=== PATIENT | male | born 1940 | race Caucasian/White ===

== ENCOUNTER → 2016-11-01 | Outpatient (REF) ==
[~2016-11-01] MED LIST: 00186-0370-20 IH; ACTOS 45MG45 MG/TAB PO; AMOXICILLIN 8751 TAB PO; ASPIRIN 32325 MG/TAB PO; BYETTA 10M600 MCG/SY; BYETTA 10M600 MCG/SY SC; BYETTA 5MC300 MCG/SY SQ; COLACE 100100 MG/CAP PO; IPRATROPIUM BROM3 M1 IH; IRON325 MG PO; LASIX 20MG TABL20 MG PO; LASIX 40MG TABL40 MG PO; LEVAQUIN 5500 MG/TA1 PO; NEURONTIN300 MG/CAP PO; PLAVIX 75MG TAB75 MG PO; PRILOSEC 20MG20 MG PO; PRINIVIL10 MG PO; ROXICODONE15 MG PO; ZOCOR 40MG40 MG PO
[2016-11-01 21:14] LABS: THYROID STIMULATING HORMONE 3.12 uIU/mL (0.465-4.680)
== END ==
LOC: ZLAB.WCH 19:39
PROVIDERS: Internal Medicine
DX: Z01.89 Encounter for other specified special examinations (principal)

== ENCOUNTER → 2017-01-11 | Outpatient (REF) | LOC: ZLAB.WCH 15:08 | DX: Z01.89 Encounter for other specified special examinations (principal) ==

== ENCOUNTER 2017-01-13 07:27 | Inpatient (IN) | payer MEDICARE, BC ==
[~2017-01-13] VITALS: Ht 182.9 cm; Wt 121.7 kg
[2017-01-13] VITALS (823 sets, daily range): BP systolic 95–129; BP diastolic 59–69; PULSE 69–74; TEMP 98–99; O2SAT 67–100
[~2017-01-13 07:27] MED LIST changes: -BYETTA 5MC300 MCG/SY SQ
[2017-01-13 09:16] LABS: ARTERIAL BLD GAS O2 SATURATION 89.9 % (92-100); ARTERIAL BLD GAS TCO2 CT 38.5; ARTERIAL BLOOD GAS BASE EXCESS 5.8 (-2-2); ARTERIAL BLOOD GAS PHT 7.26 C (7.35-7.45); ARTERIAL BLOOD GAS PO2 54.4 mmHg (80-100); ARTERIAL BLOOD GAS PO2T 54.4 (80-100); ARTERIAL BLOOD GAS pH 7.26 (7.35-7.45); OXYHEMOGLOBIN 86.7 %
[2017-01-13 09:17] LABS: ATS? YES
[2017-01-13 10:11] LABS: BASO % 0.1 % (0.0-2.0); GRAN # 6.2 (1.4-6.5); HEMATOCRIT 44.4 % (42.0-52.0); HEMOGLOBIN 12.6 g/dl (13.5-18.0); LYMPH # 0.5 (1.2-3.4); LYMPH % 6.5 % (20.0-51.0); MEAN CELL VOLUME 96 fl (80.0-100.0); MEAN CORPUSCULAR HEMOGLOBIN 27 pg (27.0-31.0); MEAN CORPUSCULAR HGB CONC 28 g/dl (33.0-37.0); MEAN PLATELET VOLUME 8.6 fl (7.4-10.4); MONO # 0.8 (0.1-0.6); MONO % 10.7 % (1.7-9.3); PLATELET COUNT 228 K/mm3 (130-400); RED BLOOD COUNT 4.64 M/mm3 (4.20-5.60); REDCELL DISTRIBUTION WIDTH-CV 16.1 % (11.5-14.5); WHITE BLOOD COUNT 7.6 K/mm3 (4.8-10.8)
[2017-01-13 10:15] LABS: INR 1.2 (0.8-3.0); PROTHROMBIN TIME 13.9 SECONDS (9.7-12.8)
[2017-01-13 10:17] LABS: ADJUSTED CALCIUM 8.6 mg/dL (8.4-10.2); ALANINE AMINOTRANSFERASE 32 U/L (21-72); ALBUMIN 3.1 gm/dL (3.5-5.0); ALKALINE PHOSPHATASE 79 U/L (50-136); ANION GAP 9 mmol/L (7-16); BILIRUBIN,TOTAL 1.2 mg/dL (0.0-1.0); BLOOD UREA NITROGEN 33 mg/dL (9-20); CALCIUM 7.9 mg/dL (8.4-10.2); CARBON DIOXIDE 34 mmol/L (22-30); CHLORIDE 94 mmol/L (98-107); CREATININE, serum 1.31 mg/dL (0.66-1.25); GLUCOSE 146 mg/dL (74-106); POTASSIUM 5.2 mmol/L (3.4-5.0); SODIUM 137 mmol/L (137-145); TOTAL PROTEIN 5.5 gm/dL (6.4-8.2)
[2017-01-13 10:18] LABS: SALICYLATE < 1.0 mg/dL
[2017-01-13 10:28] LABS: TROPONIN-I 0.026 ng/mL (0.000-0.034)
[2017-01-13 11:21] LABS: VENOUS BLOOD GAS SAO2 68.4 % (60-80)
[2017-01-13 11:21] LABS: ARTERIAL BLD GAS O2 SATURATION 97.7 % (92-100); ARTERIAL BLD GAS TCO2 CT 33.7; ARTERIAL BLOOD GAS BASE EXCESS 5.3 (-2-2); ARTERIAL BLOOD GAS pH 7.38 (7.35-7.45)
[2017-01-13 11:22] LABS: ATS? YES
[2017-01-13 11:23] LABS: VENOUS BLOOD GAS SITE CENTRAL LINE
[2017-01-13] MEDS ORDERED: BYETTA 5MC300 MCG/SY SQ (13:11)
[2017-01-13] MEDS ORDERED: LASIX 20MG TABL20 MG PO (13:11)
[2017-01-13 17:19] LABS: VENOUS BLOOD GAS BE 7.8 (-4-4); VENOUS BLOOD GAS SAO2 75.1 % (60-80)
[2017-01-13 17:20] LABS: VENOUS BLOOD GAS SITE CENTRAL LINE
[2017-01-14] VITALS (1294 sets, daily range): BP systolic 98–124; BP diastolic 52–81; PULSE 65–79; TEMP 98.4–101.4; O2SAT 86–99
[2017-01-14 05:24] LABS: ARTERIAL BLOOD GAS PO2 58.8 mmHg (80-100); ARTERIAL BLOOD GAS pH 7.55 (7.35-7.45)
[2017-01-14 05:25] LABS: ALLEN TEST YES; ALLENS TEST RESULT PASS; ARTERIAL BLD GAS O2 SATURATION 91.6 % (92-100); ARTERIAL BLD GAS TCO2 CT 27.9; ARTERIAL BLOOD GAS BASE EXCESS 5.1 (-2-2); ATS? YES
[2017-01-14 06:00] LABS: BASO % 0.4 % (0.0-2.0); HEMATOCRIT 39.7 % (42.0-52.0); HEMOGLOBIN 12.4 g/dl (13.5-18.0); LYMPH # 0.6 (1.2-3.4); LYMPH % 6.4 % (20.0-51.0); MEAN CORPUSCULAR HEMOGLOBIN 27 pg (27.0-31.0); MEAN CORPUSCULAR HGB CONC 31 g/dl (33.0-37.0); MONO # 0.9 (0.1-0.6); MONO % 10.7 % (1.7-9.3); PLATELET COUNT 238 K/mm3 (130-400); RED BLOOD COUNT 4.58 M/mm3 (4.20-5.60); REDCELL DISTRIBUTION WIDTH-CV 16.1 % (11.5-14.5); WHITE BLOOD COUNT 8.5 K/mm3 (4.8-10.8)
[2017-01-14 06:01] LABS: INR 1.5 (0.8-3.0); PROTHROMBIN TIME 16.4 SECONDS (9.7-12.8)
[2017-01-14 06:04] LABS: ADJUSTED CALCIUM 9.1 mg/dL (8.4-10.2); ALBUMIN 2.6 gm/dL (3.5-5.0); BILIRUBIN,TOTAL 1.6 mg/dL (0.0-1.0); MAGNESIUM 2.2 mg/dL (1.6-2.3); MEAN CELL VOLUME 87 fl (80.0-100.0); PHOSPHOROUS 3.5 mg/dL (2.5-4.5); POTASSIUM 4.3 mmol/L (3.4-5.0); TOTAL PROTEIN 4.9 gm/dL (6.4-8.2)
[2017-01-14 11:17] LABS: PH 8 (5-8); SQUAMOUS EPITHELIAL 0-2 /hpf; URINE APPEARANCE Clear; URINE BACTERIA None Seen /hpf; URINE BILIRUBIN Negative (NEGATIVE); URINE BLOOD 1+ (NEGATIVE); URINE COLOR Yellow; URINE GLUCOSE Negative (NEGATIVE); URINE KETONE 1+ (NEGATIVE); URINE RBC 20-50 /hpf; URINE UROBILINOGEN Negative (NEGATIVE)
[2017-01-14 22:58] LABS: ADJUSTED CALCIUM 8.4 mg/dL (8.4-10.2); ALBUMIN 2.3 gm/dL (3.5-5.0); BILIRUBIN,TOTAL 1.1 mg/dL (0.0-1.0); CREATININE, serum 0.68 mg/dL (0.66-1.25); POTASSIUM 3.4 mmol/L (3.4-5.0); TOTAL PROTEIN 4.5 gm/dL (6.4-8.2)
[2017-01-15] VITALS (1251 sets, daily range): BP systolic 104–113; BP diastolic 56–63; PULSE 61–69; TEMP 97–98.9; O2SAT 84–100
[2017-01-15 05:08] LABS: ARTERIAL BLD GAS O2 SATURATION 92.4 % (92-100); ARTERIAL BLD GAS TCO2 CT 34.5; ARTERIAL BLOOD GAS BASE EXCESS 6.8 (-2-2); ARTERIAL BLOOD GAS HCO3 32.9 meq/L (22-26); ARTERIAL BLOOD GAS pH 7.41 (7.35-7.45); OXYHEMOGLOBIN 91.4 %
[2017-01-15 05:09] LABS: ALLEN TEST NO; ATS? YES
[2017-01-15 05:21] LABS: BASO % 0.1 % (0.0-2.0); GRAN # 7.3 (1.4-6.5); GRAN % 87.4 % (42.2-75.2); LYMPH # 0.4 (1.2-3.4); LYMPH % 4.5 % (20.0-51.0); MEAN CELL VOLUME 88 fl (80.0-100.0); MEAN CORPUSCULAR HGB CONC 31 g/dl (33.0-37.0); MEAN PLATELET VOLUME 9.2 fl (7.4-10.4); MONO # 0.6 (0.1-0.6); MONO % 7.6 % (1.7-9.3); PLATELET COUNT 214 K/mm3 (130-400); RED BLOOD COUNT 4.18 M/mm3 (4.20-5.60); REDCELL DISTRIBUTION WIDTH-CV 15.9 % (11.5-14.5); WHITE BLOOD COUNT 8.3 K/mm3 (4.8-10.8)
[2017-01-15 05:35] LABS: ADJUSTED CALCIUM 8.4 mg/dL (8.4-10.2); ALBUMIN 2.5 gm/dL (3.5-5.0); BILIRUBIN,TOTAL 1.1 mg/dL (0.0-1.0); CALCIUM 7.2 mg/dL (8.4-10.2); CREATININE, serum 0.69 mg/dL (0.66-1.25); PHOSPHOROUS 3.9 mg/dL (2.5-4.5); POTASSIUM 3.3 mmol/L (3.4-5.0); TOTAL PROTEIN 4.6 gm/dL (6.4-8.2)
[2017-01-15 06:30] LABS: INR 1.4 (0.8-3.0); PROTHROMBIN TIME 15.6 SECONDS (9.7-12.8)
[2017-01-15 06:42] LABS: HEMATOCRIT 36.9 % (42.0-52.0); HEMOGLOBIN 11.4 g/dl (13.5-18.0); MEAN CORPUSCULAR HEMOGLOBIN 27 pg (27.0-31.0)
[2017-01-15 19:25] LABS: ALBUMIN 2.8 gm/dL (3.5-5.0); BILIRUBIN,TOTAL 1.4 mg/dL (0.0-1.0); CREATININE, serum 0.7 mg/dL (0.66-1.25); POTASSIUM 3.9 mmol/L (3.4-5.0)
[2017-01-16] VITALS (1094 sets, daily range): BP systolic 105–120; BP diastolic 59–68; PULSE 70–73; TEMP 97.9–98.9; O2SAT 77–100
[2017-01-16 04:28] LABS: ARTERIAL BLD GAS TCO2 CT 35.3; ARTERIAL BLOOD GAS BASE EXCESS 6.5 (-2-2); ARTERIAL BLOOD GAS HCO3 33.5 meq/L (22-26); ARTERIAL BLOOD GAS PHT 7.38 C (7.35-7.45); ARTERIAL BLOOD GAS PO2 72.5 mmHg (80-100); ARTERIAL BLOOD GAS PO2T 72.5 (80-100); ARTERIAL BLOOD GAS pH 7.38 (7.35-7.45); OXYHEMOGLOBIN 91.8 %
[2017-01-16 04:29] LABS: ALLEN TEST YES; ALLENS TEST RESULT PASS; ATS? YES
[2017-01-16 05:04] LABS: BASO % 0.1 % (0.0-2.0); GRAN # 6.1 (1.4-6.5); GRAN % 88.8 % (42.2-75.2); HEMATOCRIT 41.1 % (42.0-52.0); LYMPH # 0.3 (1.2-3.4); LYMPH % 4.9 % (20.0-51.0); MEAN CELL VOLUME 90 fl (80.0-100.0); MEAN CORPUSCULAR HEMOGLOBIN 26 pg (27.0-31.0); MEAN CORPUSCULAR HGB CONC 29 g/dl (33.0-37.0); MEAN PLATELET VOLUME 8.6 fl (7.4-10.4); MONO # 0.4 (0.1-0.6); MONO % 5.8 % (1.7-9.3); PLATELET COUNT 212 K/mm3 (130-400); RED BLOOD COUNT 4.56 M/mm3 (4.20-5.60); REDCELL DISTRIBUTION WIDTH-CV 15.9 % (11.5-14.5); WHITE BLOOD COUNT 6.9 K/mm3 (4.8-10.8)
[2017-01-16 05:16] LABS: INR 1.2 (0.8-3.0); PROTHROMBIN TIME 13.7 SECONDS (9.7-12.8)
[2017-01-16 05:17] LABS: ADJUSTED CALCIUM 8.7 mg/dL (8.4-10.2); BILIRUBIN,TOTAL 1.1 mg/dL (0.0-1.0); CALCIUM 7.9 mg/dL (8.4-10.2); CREATININE, serum 0.68 mg/dL (0.66-1.25); MAGNESIUM 2.1 mg/dL (1.6-2.3); PHOSPHOROUS 3.7 mg/dL (2.5-4.5); POTASSIUM 3.9 mmol/L (3.4-5.0); TOTAL PROTEIN 5.3 gm/dL (6.4-8.2)
[2017-01-17] VITALS (677 sets, daily range): BP systolic 108–129; BP diastolic 59–74; PULSE 70–76; TEMP 98–100.6; O2SAT 84–99
[2017-01-17 05:17] LABS: ARTERIAL BLD GAS O2 SATURATION 93.2 % (92-100); ARTERIAL BLD GAS TCO2 CT 34.4; ARTERIAL BLOOD GAS BASE EXCESS 4.5 (-2-2); ARTERIAL BLOOD GAS HCO3 32.4 meq/L (22-26); ARTERIAL BLOOD GAS PHT 7.32 C (7.35-7.45); ARTERIAL BLOOD GAS PO2 74.3 mmHg (80-100); ARTERIAL BLOOD GAS PO2T 74.3 (80-100); ARTERIAL BLOOD GAS pH 7.32 (7.35-7.45); OXYHEMOGLOBIN 91.7 %
[2017-01-17 05:18] LABS: ALLEN TEST YES; ALLENS TEST RESULT PASS; ATS? YES
[2017-01-17 06:24] LABS: ADJUSTED CALCIUM 8.9 mg/dL (8.4-10.2); BILIRUBIN,TOTAL 0.9 mg/dL (0.0-1.0); CALCIUM 8.1 mg/dL (8.4-10.2); CREATININE, serum 0.62 mg/dL (0.66-1.25); POTASSIUM 3.9 mmol/L (3.4-5.0); TOTAL PROTEIN 5.2 gm/dL (6.4-8.2)
[2017-01-17 06:27] LABS: BASO % 0.2 % (0.0-2.0); GRAN # 5.6 (1.4-6.5); GRAN % 85.4 % (42.2-75.2); HEMATOCRIT 41.6 % (42.0-52.0); HEMOGLOBIN 12.1 g/dl (13.5-18.0); LYMPH # 0.4 (1.2-3.4); LYMPH % 6.5 % (20.0-51.0); MEAN CELL VOLUME 92 fl (80.0-100.0); MEAN CORPUSCULAR HEMOGLOBIN 27 pg (27.0-31.0); MEAN CORPUSCULAR HGB CONC 29 g/dl (33.0-37.0); MEAN PLATELET VOLUME 9.3 fl (7.4-10.4); MONO # 0.5 (0.1-0.6); MONO % 7.7 % (1.7-9.3); PLATELET COUNT 238 K/mm3 (130-400); RED BLOOD COUNT 4.54 M/mm3 (4.20-5.60); REDCELL DISTRIBUTION WIDTH-CV 16.2 % (11.5-14.5); WHITE BLOOD COUNT 6.5 K/mm3 (4.8-10.8)
[2017-01-18] VITALS (389 sets, daily range): BP systolic 117–142; BP diastolic 62–74; PULSE 62–70; TEMP 98.2–98.6; O2SAT 85–100
[2017-01-18 04:28] LABS: ARTERIAL BLD GAS O2 SATURATION 94.3 % (92-100); ARTERIAL BLD GAS TCO2 CT 41.3; ARTERIAL BLOOD GAS BASE EXCESS 12.1 (-2-2); ARTERIAL BLOOD GAS HCO3 39.4 meq/L (22-26); ARTERIAL BLOOD GAS PHT 7.42 C (7.35-7.45); ARTERIAL BLOOD GAS PO2 72.4 mmHg (80-100); ARTERIAL BLOOD GAS PO2T 72.4 (80-100); ARTERIAL BLOOD GAS pH 7.42 (7.35-7.45); OXYHEMOGLOBIN 92.9 %
[2017-01-18 04:33] LABS: ATS? YES
[2017-01-18 04:34] LABS: ALLEN TEST YES; ALLENS TEST RESULT PASS
[2017-01-18 05:48] LABS: BASO % 0.2 % (0.0-2.0); GRAN # 4.9 (1.4-6.5); GRAN % 83.5 % (42.2-75.2); HEMATOCRIT 42.3 % (42.0-52.0); HEMOGLOBIN 12.5 g/dl (13.5-18.0); LYMPH # 0.5 (1.2-3.4); LYMPH % 7.9 % (20.0-51.0); MEAN CELL VOLUME 91 fl (80.0-100.0); MEAN CORPUSCULAR HEMOGLOBIN 27 pg (27.0-31.0); MEAN CORPUSCULAR HGB CONC 30 g/dl (33.0-37.0); MEAN PLATELET VOLUME 9.4 fl (7.4-10.4); MONO # 0.5 (0.1-0.6); MONO % 7.9 % (1.7-9.3); PLATELET COUNT 244 K/mm3 (130-400); RED BLOOD COUNT 4.66 M/mm3 (4.20-5.60); REDCELL DISTRIBUTION WIDTH-CV 16.3 % (11.5-14.5); WHITE BLOOD COUNT 5.8 K/mm3 (4.8-10.8)
[2017-01-18 05:54] LABS: ADJUSTED CALCIUM 9.1 mg/dL (8.4-10.2); ALBUMIN 2.9 gm/dL (3.5-5.0); BILIRUBIN,TOTAL 0.9 mg/dL (0.0-1.0); CALCIUM 8.2 mg/dL (8.4-10.2); CREATININE, serum 0.57 mg/dL (0.66-1.25); MAGNESIUM 2.5 mg/dL (1.6-2.3); PHOSPHOROUS 2.8 mg/dL (2.5-4.5); POTASSIUM 3.7 mmol/L (3.4-5.0); TOTAL PROTEIN 5.1 gm/dL (6.4-8.2)
[2017-01-18 14:25] LABS: PLEURAL FLUID - PMN 22.5 % (0-25)
[2017-01-18 14:35] LABS: PLEURAL FLUID LEFT SIDE; PLEURAL FLUID APPEARANCE CLEAR; PLEURAL FLUID COLOR YELLOW
== END 2017-01-18 13:27 | DRG 853 ==
LOC: ICU 07:27
PROVIDERS: Family Medicine; Internal Medicine; Internal Medicine Pulmonary Disease
PROC: 5A1955Z Respiratory Ventilation, Greater than 96 Consecutive Hours (ICD-10-PCS; 2017-01-13)
PROC: 0B938ZZ Drainage of Right Main Bronchus, Via Natural or Artificial Opening Endoscopic (ICD-10-PCS; 2017-01-15)
PROC: 0B978ZZ Drainage of Left Main Bronchus, Via Natural or Artificial Opening Endoscopic (ICD-10-PCS; 2017-01-15)
PROC: 0W993ZZ Drainage of Right Pleural Cavity, Percutaneous Approach (ICD-10-PCS; 2017-01-17)
PROC: 0W9B3ZZ Drainage of Left Pleural Cavity, Percutaneous Approach (ICD-10-PCS; principal; 2017-01-18)
PROC: 02HV33Z Insertion of Infusion Device into Superior Vena Cava, Percutaneous Approach (ICD-10-PCS; 2017-01-18)
DX: A41.9 Sepsis, unspecified organism (principal); R65.21 Severe sepsis with septic shock; J96.01 Acute respiratory failure with hypoxia; J18.9 Pneumonia, unspecified organism; J69.0 Pneumonitis due to inhalation of food and vomit; E44.0 Moderate protein-calorie malnutrition; J90 Pleural effusion, not elsewhere classified; L97.811 Non-pressure chronic ulcer of other part of right lower leg limited to breakdown of skin; L03.116 Cellulitis of left lower limb; E11.9 Type 2 diabetes mellitus without complications; I10 Essential (primary) hypertension; D64.9 Anemia, unspecified; E78.5 Hyperlipidemia, unspecified; Z68.35 Body mass index [BMI] 35.0-35.9, adult
CPT/HCPCS: 99223-AI; 99232-AI; 99233-AI; 99239; C1751; J0456; J0713; J1644; J1650; J1720; J1815; J1940; J2020; J2543; J2704; J3370; J3480; J7030; J7040; J7050; P9047

== ENCOUNTER → 2017-01-13 | Outpatient (REF) | LOC: ZLAB.WCH 10:41 | DX: Z01.89 Encounter for other specified special examinations (principal) ==

== ENCOUNTER 2017-09-21 22:47 | Inpatient (IN) | payer MEDICARE, BC ==
[~2017-09-21] VITALS: Ht 177.8 cm; Wt 114.2 kg
[~2017-09-21 22:47] MED LIST changes: +BYETTA 5MC300 MCG/SY SQ
[2017-09-21 23:18] LABS: BASO % 0.3 % (0.0-2.0); GRAN # 5.8 (1.4-6.5); GRAN % 68.1 % (42.2-75.2); LYMPH # 1.8 (1.2-3.4); MEAN CELL VOLUME 92 fl (80.0-100.0); MEAN CORPUSCULAR HGB CONC 29 g/dl (33.0-37.0); MEAN PLATELET VOLUME 9.4 fl (7.4-10.4); MONO # 0.9 (0.1-0.6); MONO % 10.3 % (1.7-9.3); PLATELET COUNT 206 K/mm3 (130-400); RED BLOOD COUNT 6.87 M/mm3 (4.20-5.60); REDCELL DISTRIBUTION WIDTH-CV 19.6 % (11.5-14.5)
[2017-09-21 23:21] LABS: ARTERIAL BLD GAS O2 SATURATION 94.4 % (92-100); ARTERIAL BLD GAS TCO2 CT 28.3; ARTERIAL BLOOD GAS BASE EXCESS -3.7 (-2-2); ARTERIAL BLOOD GAS HCO3 26.2 meq/L (22-26); ARTERIAL BLOOD GAS PO2 86.3 mmHg (80-100); ARTERIAL BLOOD GAS pH 7.21 (7.35-7.45)
[2017-09-21 23:22] LABS: ARTERIAL BLOOD GAS PCO2 67.2 mmHg (35-45)
[2017-09-21 23:23] LABS: INR 1.2 (0.8-3.0); PROTHROMBIN TIME 13.8 SECONDS (9.7-12.8)
[2017-09-21 23:26] LABS: PARTIAL THROMBOPLASTIN TIME 34.8 SECONDS (26.0-37.0)
[2017-09-21 23:27] LABS: HEMATOCRIT 63.3 % (42.0-52.0); HEMOGLOBIN 18.4 g/dl (13.5-18.0); MEAN CORPUSCULAR HEMOGLOBIN 27 pg (27.0-31.0)
[2017-09-21 23:45] LABS: TROPONIN-I 0.116 ng/mL (0.000-0.034)
[2017-09-21 23:57] LABS: BILIRUBIN,TOTAL 1.6 mg/dL (0.0-1.0); CALCIUM 9.1 mg/dL (8.4-10.2); CREATININE, serum 1.52 mg/dL (0.66-1.25); POTASSIUM 5.5 mmol/L (3.4-5.0); TOTAL PROTEIN 7.6 gm/dL (6.4-8.2)
[2017-09-22] VITALS (1198 sets, daily range): BP systolic 103–151; BP diastolic 71–91; PULSE 59–68; TEMP 97.6–98.9; O2SAT 48–100
[2017-09-22] MEDS ORDERED: GLUCOTROL 5M5 MG/TAB PO (01:26)
[2017-09-22 01:27] LABS: ARTERIAL BLD GAS O2 SATURATION 96.4 % (92-100); ARTERIAL BLD GAS TCO2 CT 36.3; ARTERIAL BLOOD GAS BASE EXCESS 0.3 (-2-2); ARTERIAL BLOOD GAS HCO3 33.4 meq/L (22-26)
[2017-09-22] MEDS ORDERED: BYETTA 5MC300 MCG/SY SQ (01:27)
[2017-09-22] MEDS ORDERED: K-DUR20 MEQ PO (01:27)
[2017-09-22] MEDS ORDERED: LASIX 40MG TABL40 MG PO (01:27)
[2017-09-22 01:29] LABS: ARTERIAL BLOOD GAS pH 7.16 (7.35-7.45)
[2017-09-22 01:30] LABS: ARTERIAL BLOOD GAS PCO2 96.4 mmHg (35-45)
[2017-09-22 03:40] LABS: ARTERIAL BLD GAS O2 SATURATION 96.1 % (92-100); ARTERIAL BLD GAS TCO2 CT 27.6; ARTERIAL BLOOD GAS BASE EXCESS 1.9 (-2-2); ARTERIAL BLOOD GAS HCO3 26.3 meq/L (22-26); ARTERIAL BLOOD GAS PCO2 40.4 mmHg (35-45); ARTERIAL BLOOD GAS pH 7.43 (7.35-7.45)
[2017-09-22 04:41] LABS: BASO % 0.5 % (0.0-2.0); GRAN # 5.3 (1.4-6.5); GRAN % 64.2 % (42.2-75.2); HEMOGLOBIN 16.7 g/dl (13.5-18.0); LYMPH # 2.1 (1.2-3.4); LYMPH % 24.9 % (20.0-51.0); MEAN CELL VOLUME 90 fl (80.0-100.0); MEAN CORPUSCULAR HEMOGLOBIN 27 pg (27.0-31.0); MEAN CORPUSCULAR HGB CONC 30 g/dl (33.0-37.0); MEAN PLATELET VOLUME 9.7 fl (7.4-10.4); MONO # 0.8 (0.1-0.6); MONO % 9.9 % (1.7-9.3); PLATELET COUNT 181 K/mm3 (130-400); REDCELL DISTRIBUTION WIDTH-CV 19.3 % (11.5-14.5)
[2017-09-22 04:42] LABS: INR 1.2 (0.8-3.0); PROTHROMBIN TIME 13.8 SECONDS (9.7-12.8)
[2017-09-22 04:45] LABS: ALBUMIN 3.4 gm/dL (3.5-5.0); BILIRUBIN,TOTAL 1.9 mg/dL (0.0-1.0); CREATININE, serum 1.44 mg/dL (0.66-1.25); TOTAL PROTEIN 6.4 gm/dL (6.4-8.2)
[2017-09-22 04:51] LABS: CHOLESTEROL RISK RATIO 5.7; MAGNESIUM 2.3 mg/dL (1.6-2.3)
[2017-09-22 05:15] LABS: THYROID STIMULATING HORMONE 3.43 uIU/mL (0.465-4.680)
[2017-09-22 05:24] LABS: TROPONIN-I 3 HR POST INITIAL 0.218 ng/mL (0.000-0.034)
[2017-09-22 05:35] LABS: POTASSIUM 6.3 mmol/L (3.4-5.0)
[2017-09-22 06:39] LABS: COLLECTION METHOD CLEAN CATCH
[2017-09-22 06:50] LABS: MUCOUS Present /lpf; PH 5 (5-8); SQUAMOUS EPITHELIAL 0-2 /hpf; URINE APPEARANCE Hazy; URINE BACTERIA None Seen /hpf; URINE BILIRUBIN Positive (NEGATIVE); URINE BLOOD 2+ (NEGATIVE); URINE COLOR Amber; URINE GLUCOSE 1+ (NEGATIVE); URINE KETONE Trace (NEGATIVE); URINE LEUKOCYTE ESTERASE Trace (NEGATIVE); URINE NITRATE Negative (NEGATIVE); URINE PROTEIN(semi-quant) 2+ (NEGATIVE); URINE RBC 20-50 /hpf; URINE UROBILINOGEN >=4.0 mg/dL (NEGATIVE)
[2017-09-22 07:22] LABS: TRICYCLIC ANTIDEPRESS URINE NEGATIVE
[2017-09-22 08:09] LABS: ARTERIAL BLD GAS O2 SATURATION 95.7 % (92-100); ARTERIAL BLD GAS TCO2 CT 27.5; ARTERIAL BLOOD GAS BASE EXCESS 2.5 (-2-2); ARTERIAL BLOOD GAS HCO3 26.3 meq/L (22-26); ARTERIAL BLOOD GAS PCO2 38.5 mmHg (35-45); ARTERIAL BLOOD GAS PO2 79.3 mmHg (80-100); ARTERIAL BLOOD GAS pH 7.45 (7.35-7.45)
[2017-09-22] MEDS ORDERED: LEXAPRO20 MG PO (12:51)
[2017-09-23] VITALS (1425 sets, daily range): BP systolic 97–141; BP diastolic 53–81; PULSE 64–106; TEMP 96.9–98.6; O2SAT 67–99
[2017-09-23 02:28] LABS: FOLATE (FOLIC ACID) 7.9 ng/mL (7.0-31.4)
[2017-09-23 05:30] LABS: ARTERIAL BLD GAS O2 SATURATION 92.6 % (92-100); ARTERIAL BLD GAS TCO2 CT 27.1; ARTERIAL BLOOD GAS BASE EXCESS 3.9 (-2-2); ARTERIAL BLOOD GAS HCO3 26.1 meq/L (22-26); ARTERIAL BLOOD GAS PCO2 32.7 mmHg (35-45); ARTERIAL BLOOD GAS PO2 62.9 mmHg (80-100); ARTERIAL BLOOD GAS pH 7.52 (7.35-7.45)
[2017-09-23 05:31] LABS: BASO # 0.1 (0.0-0.2); BASO % 0.8 % (0.0-2.0); EOS % 0.5 % (0-4.0); GRAN # 4.7 (1.4-6.5); HEMATOCRIT 51.2 % (42.0-52.0); HEMOGLOBIN 16.1 g/dl (13.5-18.0); MEAN CELL VOLUME 86 fl (80.0-100.0); MEAN CORPUSCULAR HEMOGLOBIN 27 pg (27.0-31.0); MEAN CORPUSCULAR HGB CONC 31 g/dl (33.0-37.0); MEAN PLATELET VOLUME 8.9 fl (7.4-10.4); MONO # 0.8 (0.1-0.6); MONO % 10.4 % (1.7-9.3); PLATELET COUNT 176 K/mm3 (130-400); RED BLOOD COUNT 5.95 M/mm3 (4.20-5.60); REDCELL DISTRIBUTION WIDTH-CV 19.5 % (11.5-14.5)
[2017-09-23 05:46] LABS: ALBUMIN 2.7 gm/dL (3.5-5.0); BILIRUBIN,TOTAL 2.3 mg/dL (0.0-1.0); CALCIUM 8.1 mg/dL (8.4-10.2); CREATININE, serum 0.92 mg/dL (0.66-1.25); POTASSIUM 4.3 mmol/L (3.4-5.0); TOTAL PROTEIN 5.4 gm/dL (6.4-8.2)
[2017-09-23 07:51] LABS: ARTERIAL BLD GAS O2 SATURATION 93.9 % (92-100); ARTERIAL BLD GAS TCO2 CT 27.8; ARTERIAL BLOOD GAS BASE EXCESS 0.9 (-2-2); ARTERIAL BLOOD GAS HCO3 26.4 meq/L (22-26); ARTERIAL BLOOD GAS PO2 77.2 mmHg (80-100); ARTERIAL BLOOD GAS pH 7.39 (7.35-7.45)
[2017-09-23 13:11] LABS: ARTERIAL BLD GAS O2 SATURATION 88.9 % (92-100); ARTERIAL BLD GAS TCO2 CT 33.4; ARTERIAL BLOOD GAS BASE EXCESS -2.8 (-2-2); ARTERIAL BLOOD GAS HCO3 30.4 meq/L (22-26); ARTERIAL BLOOD GAS PCO2 96.9 mmHg (35-45); ARTERIAL BLOOD GAS PO2 74.1 mmHg (80-100); ARTERIAL BLOOD GAS pH 7.12 (7.35-7.45)
[2017-09-23 15:29] LABS: ARTERIAL BLD GAS O2 SATURATION 91.5 % (92-100); ARTERIAL BLD GAS TCO2 CT 28.2; ARTERIAL BLOOD GAS BASE EXCESS 0.2 (-2-2); ARTERIAL BLOOD GAS HCO3 26.7 meq/L (22-26); ARTERIAL BLOOD GAS PCO2 49.9 mmHg (35-45); ARTERIAL BLOOD GAS pH 7.35 (7.35-7.45)
[2017-09-23 15:31] LABS: ARTERIAL BLD GAS O2 SATURATION 81.6 % (92-100); ARTERIAL BLOOD GAS BASE EXCESS -3.7 (-2-2); ARTERIAL BLOOD GAS HCO3 29.9 meq/L (22-26); ARTERIAL BLOOD GAS PO2 61.8 mmHg (80-100)
[2017-09-23 15:33] LABS: ARTERIAL BLOOD GAS PCO2 100.2 mmHg (35-45); ARTERIAL BLOOD GAS pH 7.09 (7.35-7.45)
[2017-09-24] VITALS (1346 sets, daily range): BP systolic 138–150; BP diastolic 68–87; PULSE 63–70; TEMP 98–100.2; O2SAT 93–100
[2017-09-24 05:15] LABS: BASO % 0.6 % (0.0-2.0); EOS # 0.1 (0.0-0.7); GRAN # 4.2 (1.4-6.5); GRAN % 58.8 % (42.2-75.2); HEMATOCRIT 49.6 % (42.0-52.0); HEMOGLOBIN 15.4 g/dl (13.5-18.0); LYMPH % 28.6 % (20.0-51.0); MEAN CELL VOLUME 86 fl (80.0-100.0); MEAN CORPUSCULAR HEMOGLOBIN 27 pg (27.0-31.0); MEAN CORPUSCULAR HGB CONC 31 g/dl (33.0-37.0); MEAN PLATELET VOLUME 9.1 fl (7.4-10.4); MONO # 0.8 (0.1-0.6); MONO % 10.7 % (1.7-9.3); PLATELET COUNT 172 K/mm3 (130-400); RED BLOOD COUNT 5.78 M/mm3 (4.20-5.60); REDCELL DISTRIBUTION WIDTH-CV 19.7 % (11.5-14.5)
[2017-09-24 05:27] LABS: CREATININE, serum 0.68 mg/dL (0.66-1.25); MAGNESIUM 1.9 mg/dL (1.6-2.3); PHOSPHOROUS 3.2 mg/dL (2.5-4.5)
[2017-09-24 06:02] LABS: ARTERIAL BLD GAS O2 SATURATION 96.1 % (92-100); ARTERIAL BLD GAS TCO2 CT 27.3; ARTERIAL BLOOD GAS BASE EXCESS 2.7 (-2-2); ARTERIAL BLOOD GAS HCO3 26.1 meq/L (22-26); ARTERIAL BLOOD GAS PCO2 36.8 mmHg (35-45); ARTERIAL BLOOD GAS PO2 83.7 mmHg (80-100); ARTERIAL BLOOD GAS pH 7.47 (7.35-7.45)
[2017-09-25] VITALS (590 sets, daily range): BP systolic 131–145; BP diastolic 64–72; PULSE 64–75; TEMP 98.6–100.7; O2SAT 93–100
[2017-09-25 05:26] LABS: BASO % 0.6 % (0.0-2.0); EOS # 0.1 (0.0-0.7); EOS % 1.2 % (0-4.0); GRAN # 4.2 (1.4-6.5); GRAN % 61.5 % (42.2-75.2); HEMATOCRIT 50.2 % (42.0-52.0); HEMOGLOBIN 15.5 g/dl (13.5-18.0); LYMPH # 1.8 (1.2-3.4); LYMPH % 25.4 % (20.0-51.0); MEAN CELL VOLUME 87 fl (80.0-100.0); MEAN CORPUSCULAR HEMOGLOBIN 27 pg (27.0-31.0); MEAN CORPUSCULAR HGB CONC 31 g/dl (33.0-37.0); MEAN PLATELET VOLUME 9.3 fl (7.4-10.4); MONO # 0.8 (0.1-0.6); PLATELET COUNT 184 K/mm3 (130-400); REDCELL DISTRIBUTION WIDTH-CV 20.1 % (11.5-14.5)
[2017-09-25 05:36] LABS: ALBUMIN 2.9 gm/dL (3.5-5.0); BILIRUBIN,TOTAL 1.9 mg/dL (0.0-1.0); CALCIUM 8.2 mg/dL (8.4-10.2); CREATININE, serum 0.63 mg/dL (0.66-1.25); POTASSIUM 3.7 mmol/L (3.4-5.0); TOTAL PROTEIN 5.7 gm/dL (6.4-8.2)
[2017-09-25 05:43] LABS: PRE ALBUMIN 8.2 mg/dL (17.6-36.0)
[2017-09-25 11:29] LABS: ARTERIAL BLD GAS O2 SATURATION 95.1 % (92-100); ARTERIAL BLOOD GAS BASE EXCESS 3.9 (-2-2); ARTERIAL BLOOD GAS HCO3 27.8 meq/L (22-26); ARTERIAL BLOOD GAS PCO2 39.4 mmHg (35-45); ARTERIAL BLOOD GAS PO2 74.6 mmHg (80-100); ARTERIAL BLOOD GAS pH 7.47 (7.35-7.45)
[2017-09-25] MEDS ORDERED: PROTONIX 40MG T40 MG PO (11:36)
[2017-09-25] MEDS ORDERED: ZOSYN 3 GM-0.371 PD1 IV (11:36)
[2017-09-25] MEDS ORDERED: IPRATROPIUM BROM3 M1 IH (11:37)
[2017-09-25] MEDS ORDERED: LASIX 40MG40 MG/4 ML IJ (11:38)
[2017-09-25] MEDS ORDERED: K LYTE 25 MEQ25 MEQ PEG (11:39)
[2017-09-25] MEDS ORDERED: LOVENOX 4040 MG/0.4 SQ (11:49)
== END 2017-09-25 16:15 | DRG 208 ==
LOC: COL.ER 22:47 → ICU 09-22 00:44
PROVIDERS: Emergency Medicine; Family Medicine; Internal Medicine; Internal Medicine Pulmonary Disease
PROC: 5A1945Z Respiratory Ventilation, 24-96 Consecutive Hours (ICD-10-PCS; principal; 2017-09-22)
PROC: 0BH18EZ Insertion of Endotracheal Airway into Trachea, Via Natural or Artificial Opening Endoscopic (ICD-10-PCS; 2017-09-22)
DX: J96.22 Acute and chronic respiratory failure with hypercapnia (principal); L97.411 Non-pressure chronic ulcer of right heel and midfoot limited to breakdown of skin; N17.9 Acute kidney failure, unspecified; E87.2 Acidosis; E11.621 Type 2 diabetes mellitus with foot ulcer; E87.5 Hyperkalemia; I10 Essential (primary) hypertension; G89.29 Other chronic pain; F32.9 Major depressive disorder, single episode, unspecified; E11.42 Type 2 diabetes mellitus with diabetic polyneuropathy; I87.8 Other specified disorders of veins
CPT/HCPCS: 99223; 99223-AI; 99232-AI; 99233-AI; 99239; C1751; C9113; J1644; J1815; J1940; J2060; J2250; J2543; J2704; J3010; J3370; J3411; J7030; J7050

== ENCOUNTER → 2017-10-26 | Outpatient (REF) ==
[~2017-10-26] MED LIST changes: +GLUCOTROL 5M5 MG/TAB PO; +K LYTE 25 MEQ25 MEQ PEG; +K-DUR20 MEQ PO; +LASIX 40MG40 MG/4 ML IJ; +LEXAPRO20 MG PO; +LOVENOX 4040 MG/0.4 SQ; +PROTONIX 40MG T40 MG PO; +ZOSYN 3 GM-0.371 PD1 IV
== END ==
LOC: ZLAB.WCH 08:41
DX: Z01.89 Encounter for other specified special examinations (principal)

== ENCOUNTER → 2018-01-13 | Outpatient (REF) | LOC: ZLAB.WCH 17:43 | DX: Z01.89 Encounter for other specified special examinations (principal) ==

== ENCOUNTER → 2018-01-13 | Outpatient (REF) | LOC: ZLAB.WCH 17:52 | DX: Z01.89 Encounter for other specified special examinations (principal) ==

== ENCOUNTER → 2018-05-11 | Outpatient (REF) | LOC: ZLAB.WCH 19:27 | DX: Z01.89 Encounter for other specified special examinations (principal) ==

== ENCOUNTER 2018-07-14 19:50 | Emergency (ER) | payer MEDICARE, BC ==
[~2018-07-14] VITALS: Ht 177.8 cm; Wt 93.6 kg
[2018-07-14 20:15] LABS: ARTERIAL BLD GAS O2 SATURATION 91.7 % (92-100); ARTERIAL BLD GAS TCO2 CT 37.9; ARTERIAL BLOOD GAS HCO3 34.7 meq/L (22-26); ARTERIAL BLOOD GAS PO2 80.1 mmHg (80-100); ARTERIAL BLOOD GAS pH 7.15 (7.35-7.45)
[2018-07-14 20:16] LABS: ARTERIAL BLOOD GAS PCO2 102.2 mmHg (35-45)
[2018-07-14 20:20] LABS: BASO # 0.1 (0.0-0.2); BASO % 0.9 % (0.0-2.0); EOS # 0.1 (0.0-0.7); EOS % 0.6 % (0-4.0); GRAN # 4.8 (1.4-6.5); GRAN % 60.3 % (42.2-75.2); HEMATOCRIT 48.2 % (42.0-52.0); HEMOGLOBIN 14.6 g/dl (13.5-18.0); LYMPH % 25.4 % (20.0-51.0); MEAN CELL VOLUME 99 fl (80.0-100.0); MEAN CORPUSCULAR HEMOGLOBIN 30 pg (27.0-31.0); MEAN CORPUSCULAR HGB CONC 30 g/dl (33.0-37.0); MEAN PLATELET VOLUME 8.6 fl (7.4-10.4); MONO # 0.9 (0.1-0.6); MONO % 11.9 % (1.7-9.3); PLATELET COUNT 273 K/mm3 (130-400); RED BLOOD COUNT 4.86 M/mm3 (4.20-5.60); REDCELL DISTRIBUTION WIDTH-CV 15.7 % (11.5-14.5)
[2018-07-14 20:34] LABS: ALBUMIN 3.8 gm/dL (3.5-5.0); BILIRUBIN,TOTAL 0.8 mg/dL (0.0-1.0); C-REACTIVE PROTEIN 4.1 mg/dL (0.0-0.9); CALCIUM 8.8 mg/dL (8.4-10.2); CREATININE, serum 1.12 mg/dL (0.66-1.25); POTASSIUM 4.9 mmol/L (3.4-5.0); TOTAL PROTEIN 6.8 gm/dL (6.4-8.2)
[2018-07-14 20:44] LABS: TROPONIN-I 0.048 ng/mL (0.000-0.034)
[2018-07-14 20:56] LABS: ARTERIAL BLD GAS O2 SATURATION 94.8 % (92-100); ARTERIAL BLD GAS TCO2 CT 40.4; ARTERIAL BLOOD GAS BASE EXCESS 0.5 (-2-2); ARTERIAL BLOOD GAS HCO3 36.1 meq/L (22-26); ARTERIAL BLOOD GAS PCO2 137.7 mmHg (35-45); ARTERIAL BLOOD GAS PO2 101.1 mmHg (80-100); ARTERIAL BLOOD GAS pH 7.04 (7.35-7.45)
[2018-07-14] MEDS ORDERED: LASIX 40MG TABL40 MG PO (22:51)
[2018-07-14] MEDS ORDERED: PRINIVIL20 MG PO (22:52)
[2018-07-14] MEDS ORDERED: LIPITOR 10MG10 MG PO (22:52)
[2018-07-14] MEDS ORDERED: NORVASC 10MG10 MG PO (22:52)
[2018-07-14] MEDS ORDERED: WELLBUTRIN 75MG75 MG PO (22:53)
[2018-07-14] MEDS ORDERED: CELEXA 20MG20 MG/TAB PO (22:54)
[2018-07-14] MEDS ORDERED: PEPCID 20MG TAB20 MG PO (22:54)
[2018-07-14 22:55] LABS: COLLECTION METHOD CLEAN CATCH
[2018-07-14 23:00] VITALS: BP 134/94; PULSE 61
[2018-07-14 23:03] LABS: HYALINE CAST >12 /lpf; MUCOUS Present /lpf; PH 5 (5-8); SQUAMOUS EPITHELIAL 0-2 /hpf; URINE APPEARANCE Hazy; URINE BACTERIA None Seen /hpf; URINE BILIRUBIN Negative (NEGATIVE); URINE BLOOD Negative (NEGATIVE); URINE COLOR Yellow; URINE GLUCOSE Negative (NEGATIVE); URINE KETONE Negative (NEGATIVE); URINE LEUKOCYTE ESTERASE Negative (NEGATIVE); URINE NITRATE Negative (NEGATIVE); URINE PROTEIN(semi-quant) Negative (NEGATIVE); URINE RBC 0-2 /hpf; URINE UROBILINOGEN >=4.0 mg/dL (NEGATIVE)
== END 2018-07-14 23:00 | disposition short-term general hospital (02) ==
LOC: COL.ER 19:50
PROVIDERS: Emergency Medicine
DX: J44.1 Chronic obstructive pulmonary disease with (acute) exacerbation (principal); J96.02 Acute respiratory failure with hypercapnia; E11.9 Type 2 diabetes mellitus without complications; I10 Essential (primary) hypertension
CPT/HCPCS: A4314; J0330; J2250; J7030

== ENCOUNTER 2018-09-04 09:32 | Outpatient (CLI) | payer MEDICARE, BC ==
[~2018-09-04] VITALS: Ht 177.8 cm; Wt 103.4 kg
[~2018-09-04 09:32] MED LIST changes: +ASPIRIN 32325 MG/TA1 PO; +BYETTA 10M600 MCG/SY SQ; +CELEXA 20MG20 MG/TAB PO; +DULERA1 AR1 IH; +IRON TABLETS325 MG PO; +LIPITOR 10MG10 MG PO; +NORVASC 10MG10 MG PO; +PEPCID 20MG TAB20 MG PO; +PRINIVIL20 MG PO; +WELLBUTRIN 75MG75 MG PO
[2018-09-04 10:33] VITALS: BP 143/82; PULSE 93
[2018-09-04 11:35] VITALS: BP 135/70; PULSE 81
[2018-09-04 11:36] VITALS: BP 135/70; PULSE 81
[2018-09-04 12:00] VITALS: BP 147/80; PULSE 79
[2018-09-04 12:30] VITALS: BP 135/71; PULSE 80
== END 2018-09-04 13:50 | disposition home or self-care (01) ==
LOC: COL.RAD 09:32
DX: M43.17 Spondylolisthesis, lumbosacral region (principal); M48.07 Spinal stenosis, lumbosacral region; Z98.1 Arthrodesis status
CPT/HCPCS: Q9965